=== PATIENT | female | born 1990 | race Caucasian/White ===

== ENCOUNTER 2018-05-10 20:26 | Emergency (ER) | payer OTHER ==
--- NOTE | 2018-05-10 21:52 | EDPHY ---
H & P Stated Complaint: hemorrhoids Time Seen by Provider: 05/10/18 21:09 HPI/ROS: CHIEF COMPLAINT: Pain after hemorrhoid banding today HISTORY OF PRESENT ILLNESS: 27-year-old female presents with pain after internal hemorrhoid banding today. Onset of a moderate pinching pain in the anal area after the procedure, which has persisted. Feels different from prior banding, which was pain free. Concerned about a complication. No associated symptoms. No alleviating or aggravating factors. REVIEW OF SYSTEMS: complete 10 point ROS reviewed and is negative except for the noted elements in the HPI - Personal History LMP (Females 10-55): 15-21 Days Ago Current Tetanus Diphtheria and Acellular Pertussis (TDAP): Yes - Medical/Surgical History Hx Asthma: Yes Hx Chronic Respiratory Disease: No Hx Diabetes: No Hx Cardiac Disease: No Hx Renal Disease: No Hx Cirrhosis: No Hx Alcoholism: No Hx HIV/AIDS: No Hx Splenectomy or Spleen Trauma: No - Social History Smoking Status: Never smoked - Physical Exam Exam: General Appearance: Alert, pleasant Eyes: Pupils equal and round, no conjunctival pallor ENT, Mouth: Mucous membranes moist Neck: Normal inspection Respiratory: Lungs are clear to auscultation Cardiovascular: Regular rate and rhythm Gastrointestinal: Abdomen is soft and nontender Rectal: Normal inspection Neurological: A&O, nonfocal, normal gait Skin: Warm and dry Extremities: Normal inspection Psychiatric: Mood and affect normal Constitutional: Initial Vital Signs Heart Rate 71 05/10/18 20:35 Respiratory Rate 16 05/10/18 20:35 Blood Pressure 116/78 05/10/18 20:35 O2 Sat (%) 99 05/10/18 20:35 O2 Delivery Mode Room Air Allergies/Adverse Reactions: cefdinir [From Omnicef] Allergy (Verified 05/10/18 20:35) shellfish derived Allergy (Verified 05/10/18 20:35) Home Medications: Medication Instructions Recorded NK [No Known Home Meds] 05/10/18 Medical Decision Making ED Course/Re-evaluation: This pt presents with anal pain after hemorrhoid banding today. Anoscopy: unable to visualize banding, no blood or inflammatory changes No evidence for procedural complication. Symptomatic care instructions given. f/u GI in the morning. - Data Points Medications Given: Discontinued Medications Acetaminophen (Tylenol) 650 mg PO EDNOW ONE Stop: 05/10/18 21:59 Last Admin: 05/10/18 22:17 Dose: 650 mg Departure - Departure Disposition: Home, Routine, Self-Care Clinical Impression: Anal pain Condition: Good Instructions: Rubber Band Ligation (DC) Additional Instructions: Ibuprofen 600 mg 3 times daily while the pain persists. 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 Referrals: Mallorie Coronel MD [Primary Care Provider] - As per Instructions
[2018-05-10] MEDS ORDERED: ACETAMINOPHEN 325 MG TAB PO ONE (21:58)
[2018-05-10 22:15] VITALS: BP 125/71
== END 2018-05-10 22:30 | disposition home or self-care (01) ==
PROC: 0DJD8ZZ Inspection of Lower Intestinal Tract, Via Natural or Artificial Opening Endoscopic (ICD-10-PCS; principal; 2018-05-10)
DX: G89.18 Other acute postprocedural pain (principal); K62.89 Other specified diseases of anus and rectum